=== PATIENT | female | born 1940 | race Caucasian/White ===

== ENCOUNTER 2021-11-20 11:11 | Outpatient (CLI) | payer MEDICARE, BC ==
[2021-11-20 15:55] LABS: ALT ALANINE AMINOTRANSFERASE 19 IU/L (10-60); AST ASPARTATE AMINOTRANSFERASE 24 IU/L (10-42); CHOL/HDL RATIO 3.3 (<4.4); CHOLESTEROL 166 mg/dL; CK- CREATINE KINASE 48 IU/L (22-269); HDL CHOLESTEROL 51 mg/dL; LDL CHOLESTEROL,CALCULATED 92 mg/dL; LDL/HDL RATIO 1.8 (<4.4); TRIGLYCERIDES 116 mg/dL; VLDL CHOLESTEROL 23 mg/dL
== END 2021-11-20 11:12 | disposition home or self-care (01) ==
LOC: LAB.N 11:11
PROVIDERS: ATTEND Family Medicine Geriatric Medicine
DX: E78.5 Hyperlipidemia, unspecified (principal)
CPT/HCPCS: 36415; 80061; 82550; 83721; 84450; 84460

== ENCOUNTER 2022-02-19 08:00 | Outpatient (CLI) | payer MEDICARE, BC ==
[2022-02-19 16:03] LABS: BASOPHILS # (AUTO) 0.1 10^3/uL (0.0-0.1); BASOPHILS % (AUTO) 0.6 %; EOSINOPHILS # (AUTO) 0.3 10^3/uL (0.0-0.7); EOSINOPHILS % (AUTO) 3.7 %; HCT - HEMATOCRIT 23.7 % (37.0-47.0); LYMPHOCYTES # (AUTO) 0.8 10^3/uL (1.5-3.5); LYMPHOCYTES % (AUTO) 9.7 %; MEAN CORPUSCULAR HEMOGLOBIN 20.1 pg (27.0-31.0); MEAN CORPUSCULAR VOLUME 74.3 fL (81.0-99.0); MEAN PLATELET VOLUME 9.9 fL (7.9-10.8); MONOCYTES # (AUTO) 0.8 10^3/uL (0.0-1.0); MONOCYTES % (AUTO) 9.2 %; NEUTROPHILS # (AUTO) 6.6 10^3/uL (1.5-6.6); NEUTROPHILS % (AUTO) 75.8 %; NRBC ABSOLUTE COUNT (AUTO) 0.04 x10^3/uL; NUCLEATED RED BLOOD CELLS AUTO 0.5 /100WBC; PLT - PLATELET COUNT 255 10^3/uL (130-450); RED BLOOD COUNT 3.19 10^6/uL (4.20-5.40); WHITE BLOOD COUNT 8.7 x10^3/uL (4.8-10.8)
[2022-02-19 16:08] LABS: CALCIUM 8.7 mg/dL (8.5-10.3); CREATININE 1.1 mg/dL (0.4-1.0); HGB - HEMOGLOBIN 6.4 g/dL (12.0-16.0); POTASSIUM 4.3 mmol/L (3.5-5.0)
[2022-02-19 16:29] LABS: PLATELET ESTIMATE, MANUAL NORMAL (130-450,000) (NORMAL); PLATELET MORPHOLOGY NORMAL APPEARANCE (NORMAL); SLIDE REVIEW? Indicated; WBC MORPHOLOGY (MULTIPLE) NORMAL APPEARANCE (NORMAL)
== END 2022-02-19 23:59 ==
LOC: LAB.R 08:00
PROVIDERS: ATTEND Internal Medicine
DX: G47.00 Insomnia, unspecified (principal); R06.09 Other forms of dyspnea; J32.9 Chronic sinusitis, unspecified; R23.1 Pallor
CPT/HCPCS: 80048; 83880; 85025

== ENCOUNTER 2022-02-19 16:37 | Emergency (ER) | payer MEDICARE, BC ==
[2022-02-19 17:11] LABS: BASOPHILS # (AUTO) 0.1 10^3/uL (0.0-0.1); BASOPHILS % (AUTO) 0.6 %; EOSINOPHILS # (AUTO) 0.2 10^3/uL (0.0-0.7); EOSINOPHILS % (AUTO) 2.8 %; HCT - HEMATOCRIT 23.2 % (37.0-47.0); LYMPHOCYTES % (AUTO) 12.9 %; MEAN CORPUSCULAR HEMOGLOBIN 20.5 pg (27.0-31.0); MEAN CORPUSCULAR VOLUME 73.2 fL (81.0-99.0); MEAN PLATELET VOLUME 9.5 fL (7.9-10.8); MONOCYTES # (AUTO) 0.7 10^3/uL (0.0-1.0); MONOCYTES % (AUTO) 9.2 %; NEUTROPHILS # (AUTO) 5.9 10^3/uL (1.5-6.6); NEUTROPHILS % (AUTO) 73.4 %; NRBC ABSOLUTE COUNT (AUTO) 0.02 x10^3/uL; NUCLEATED RED BLOOD CELLS AUTO 0.2 /100WBC; PLT - PLATELET COUNT 236 10^3/uL (130-450); RED BLOOD COUNT 3.17 10^6/uL (4.20-5.40); RED CELL DISTRIBUTION WIDTH 17.7 % (12.0-15.0); WHITE BLOOD COUNT 8.1 x10^3/uL (4.8-10.8)
[2022-02-19 17:14] LABS: HGB - HEMOGLOBIN 6.5 g/dL (12.0-16.0)
--- NOTE | 2022-02-19 17:24 | ED Physician Documentation ---
History of Present Illness - Stated complaint Stated Complaint: LOW BLOOD COUNT-SENT BY DOC - Chief complaint Chief Complaint: General - History obtained from History obtained from: Patient - Additonal information Additional information: 81-year-old woman presents with 2 weeks of shortness of breath and pallor. Went to her doctors today and she was noted to be anemic with a hemoglobin of 6-1/2. She does note 3 months of dark stools and some constipation. She takes Aleve twice weekly for headaches. No history of GI bleeding or anemia. Review of Systems Ten Systems: 10 systems reviewed and negative Constitutional: reports: Fatigue Nose: reports: Congestion GI: reports: Constipation. denies: Abdominal Pain, Nausea, Vomiting PD PAST MEDICAL HISTORY - Present Medications Home Medications: Ambulatory Orders Medication Instructions Recorded Confirmed Ferrous Sulfate 325 mg PO BID #60 tab 02/19/22 - Allergies Allergies/Adverse Reactions: Allergies Allergy/AdvReac Type Severity Reaction Status Date / Time No Known Drug Allergies Allergy Verified 02/19/22 17:12 PD ED PE NORMAL - Vitals Vital signs reviewed: Yes - General General: Alert and oriented X 3, No acute distress - HEENT HEENT: PERRL, EOMI - Neck Neck: Supple, no meningeal sign, No bony TTP - Cardiac Cardiac: RRR, Other (2 out of 6 decrescendo systolic murmur heard best at the left upper sternal border) - Respiratory Respiratory: No respiratory distress, Clear bilaterally - Abdomen Abdomen: Normal bowel sounds, Soft, Non tender - Rectal Rectal: Other (Rectal exam done with [facility] RN present and chaperoning. Brown stool, sent for guaiac. No masses.) - Back Back: No CVA TTP, No spinal TTP - Derm Derm: Normal color, Warm and dry - Extremities Extremities: No edema, No calf tenderness / cord - Neuro Neuro: Alert and oriented X 3, Normal speech Results - Vitals Vitals: Vital Signs - 24 hr 02/19/22 02/19/22 02/19/22 17:07 17:36 19:43 Temperature Heart Rate 77 98 81 Respiratory 16 16 Rate Blood Pressure 113/85 H 140/76 H 151/79 H O2 Saturation 98 98 97 02/19/22 02/19/22 02/20/22 21:00 23:54 00:20 Temperature 36.6 C Heart Rate 58 L 76 Respiratory 20 20 Rate Blood Pressure 122/109 H 110/71 O2 Saturation 100 97 02/20/22 02/20/22 02/20/22 00:25 00:36 01:07 Temperature 36.5 C Heart Rate 77 64 66 Respiratory 20 18 20 Rate Blood Pressure 141/99 H 143/72 H 124/72 O2 Saturation 02/20/22 02/20/22 01:21 01:46 Temperature 37.2 C Heart Rate 73 65 Respiratory 18 Rate Blood Pressure 132/65 H 117/96 H O2 Saturation Oxygen O2 Source Room air - Labs Labs: Microbiology 02/19/22 19:05 Occult Blood - Final Stool Laboratory Tests 02/19/22 02/19/22 02/19/22 12:30 17:03 17:03 WBC 8.1 RBC 3.17 L Hgb 6.5 L* Hct 23.2 L MCV 73.2 L MCH 20.5 L MCHC 28.0 L RDW 17.7 H Plt Count 236 MPV 9.5 Neut # (Auto) 5.9 Lymph # (Auto) 1.0 L [place] # (Auto) 0.7 Eos # (Auto) 0.2 Baso # (Auto) 0.1 Absolute Nucleated RBC 0.02 Nucleated RBC % 0.2 PT INR Iron TIBC % Saturation Transferrin Total Bilirubin Direct Bilirubin Indirect Bilirubin TSH Blood Type O POSITIVE Blood Type Recheck O POSITIVE Antibody Screen POSITIVE Antibody Identification Anti-Fya RAJAT, IgG Specific Not Reportable RAJAT, Polyspecific NEGATIVE RAJAT, C3d Specific Not Reportable Crossmatch See Detail Crossmatch IS Only See Detail 02/19/22 02/19/22 02/19/22 17:03 17:03 17:38 WBC RBC Hgb Hct MCV MCH MCHC RDW Plt Count MPV Neut # (Auto) Lymph # (Auto) [place] # (Auto) Eos # (Auto) Baso # (Auto) Absolute Nucleated RBC Nucleated RBC % PT 12.5 INR 1.1 Iron 14 L TIBC 503 H % Saturation 3 L Transferrin 359 Total Bilirubin Direct Bilirubin Indirect Bilirubin TSH 2.95 Blood Type Blood Type Recheck Antibody Screen Antibody Identification RAJAT, IgG Specific RAJAT, Polyspecific RAJAT, C3d Specific Crossmatch Crossmatch IS Only 02/19/22 22:08 WBC RBC Hgb Hct MCV MCH MCHC RDW Plt Count MPV Neut # (Auto) Lymph # (Auto) [place] # (Auto) Eos # (Auto) Baso # (Auto) Absolute Nucleated RBC Nucleated RBC % PT INR Iron TIBC % Saturation Transferrin Total Bilirubin 0.5 Direct Bilirubin 0.1 Indirect Bilirubin 0.4 TSH Blood Type Blood Type Recheck Antibody Screen Antibody Identification RAJAT, IgG Specific RAJAT, Polyspecific RAJAT, C3d Specific Crossmatch Crossmatch IS Only PD MEDICAL DECISION MAKING - ED course ED course: 81yo woman with symptomatic anemia of unclear timeframe. No e/o GI bleed/guaiac neg. Ordered 1 unit PRBC, some significant delay as she had antibodies making crossmatch difficult. Given this, bilirubin also checked to eval for hemolysis and neg. Departure - Departure Disposition: Home, Self Care Clinical Impression: Anemia Qualifiers: Anemia type: iron deficiency Iron deficiency anemia type: unspecified iron deficiency Qualified Code(s): D50.9 - Iron deficiency anemia, unspecified Condition: Good Record reviewed to determine appropriate education?: Yes Instructions: ED Anemia Iron Deficiency Prescriptions: Ferrous Sulfate 325 mg PO BID #60 tab Comments: You are seen today for anemia. The reason is not clear why. You certainly do have iron deficiency with total iron of 14 (normal is greater than 28), a total iron binding capacity of 503 and a percent saturation of 3%. You were guaiac negative so we do not think you are internally bleeding. Return for new or worsening symptoms. You did receive 1 unit of blood here tonight, note for your records that there was a significant delay in getting your blood because you have antibodies. Follow-up with Dr. Donato next week. She will likely want to do further work-up to find why you have anemia. Discharge Date/Time: 02/20/22 02:01
[2022-02-19 17:40] LABS: % IRON SATURATION 3 % (20-50); IRON 14 ug/dL (28-170); TOTAL IRON BINDING CAPACITY 503 ug/dL (250-450); TRANSFERRIN 359 mg/dL (192-382)
[2022-02-19 17:49] LABS: INR 1.1 (0.8-1.2); PT - PROTHROMBIN TIME 12.5 secs (9.9-12.6)
[2022-02-19 22:27] LABS: BILIRUBIN,DIRECT 0.1 mg/dL (0.1-0.5); BILIRUBIN,INDIRECT 0.4 mg/dL; BILIRUBIN,TOTAL 0.5 mg/dL (0.2-1.0)
[2022-02-20 01:47] VITALS: BP 117/96
== END 2022-02-20 02:01 | disposition home or self-care (01) ==
LOC: ED 16:37
DX: D50.9 Iron deficiency anemia, unspecified (principal)
CPT/HCPCS: 36415; 36430; 82247; 82248; 82272; 83540; 84443; 84466; 85025; 85610; 86850; 86870; 86880; 86900; 86901; 86920; 86922; 99283; 99285; P9016

== ENCOUNTER 2022-02-26 11:32 | Outpatient (CLI) | payer MEDICARE, BC ==
[2022-02-26 11:45] LABS: BASOPHILS # (AUTO) 0.1 10^3/uL (0.0-0.1); BASOPHILS % (AUTO) 0.7 %; EOSINOPHILS # (AUTO) 0.4 10^3/uL (0.0-0.7); EOSINOPHILS % (AUTO) 3.4 %; HCT - HEMATOCRIT 29.5 % (37.0-47.0); HGB - HEMOGLOBIN 8.2 g/dL (12.0-16.0); LYMPHOCYTES # (AUTO) 1.6 10^3/uL (1.5-3.5); LYMPHOCYTES % (AUTO) 14.9 %; MEAN CORPUSCULAR HEMOGLOBIN 21.7 pg (27.0-31.0); MEAN CORPUSCULAR HGB CONC 27.8 g/dL (32.0-36.0); MEAN PLATELET VOLUME 8.9 fL (7.9-10.8); MONOCYTES # (AUTO) 1.1 10^3/uL (0.0-1.0); MONOCYTES % (AUTO) 10.4 %; NEUTROPHILS # (AUTO) 7.5 10^3/uL (1.5-6.6); NEUTROPHILS % (AUTO) 69.1 %; NRBC ABSOLUTE COUNT (AUTO) 0.03 x10^3/uL; NUCLEATED RED BLOOD CELLS AUTO 0.3 /100WBC; PLT - PLATELET COUNT 224 10^3/uL (130-450); RED BLOOD COUNT 3.78 10^6/uL (4.20-5.40); RED CELL DISTRIBUTION WIDTH 22.3 % (12.0-15.0); WHITE BLOOD COUNT 10.8 x10^3/uL (4.8-10.8)
[2022-02-26 12:16] LABS: SLIDE REVIEW? Indicated
[2022-02-26 13:46] LABS: PLATELET ESTIMATE, MANUAL NORMAL (130-450,000) (NORMAL); PLATELET MORPHOLOGY NORMAL APPEARANCE (NORMAL); WBC MORPHOLOGY (MULTIPLE) NORMAL APPEARANCE (NORMAL)
== END 2022-02-26 11:33 | disposition home or self-care (01) ==
LOC: LAB 11:32
PROVIDERS: ATTEND Internal Medicine
DX: G47.00 Insomnia, unspecified (principal); D50.9 Iron deficiency anemia, unspecified
CPT/HCPCS: 36415; 85025

== ENCOUNTER 2022-06-30 06:33 | Day surgery (SDC) | payer MEDICARE, BC ==
[~2022-06-30 06:33] MED LIST: LACTATED RINGERS 1,000 ML IV ONE
--- NOTE | 2022-06-30 07:19 | ANESTHESIA ---
Pre-Anesthesia VS, & Labs - Diagnosis iron deficiency anemia, screening - Procedure Colonoscopy with possible polyp removal Height: 5 ft 6 in Weight (kg): 85.7 kg Body Mass Index: 30.4 BMI Classification: Obese - NPO >8 hours - Is Patient ?: No Home Medications and Allergies Home Medications: Ambulatory Orders Atorvastatin Calcium 40 mg PO DAILY 06/23/22 Citalopram Hydrobromide [Citalopram HBr] 40 mg PO DAILY 06/23/22 Ferrous Sulfate 325 mg PO DAILY 06/23/22 Metoprolol Succinate [Toprol Xl] 25 mg PO DAILY 06/23/22 Mirtazapine 15 mg PO QPM 06/23/22 Atorvastatin Calcium 40 mg PO DAILY 06/23/22 Citalopram Hydrobromide [Citalopram HBr] 40 mg PO DAILY 06/23/22 Ferrous Sulfate 325 mg PO DAILY 06/23/22 Metoprolol Succinate [Toprol Xl] 25 mg PO DAILY 06/23/22 Mirtazapine 15 mg PO QPM 06/23/22 Allergies/Adverse Reactions: Allergies Allergy/AdvReac Type Severity Reaction Status Date / Time No Known Drug Allergies Allergy Verified 02/19/22 17:12 Anes History & Medical History - Anesthetic History Anesthesia Complications: reports: No previous complications Family history of Anesthesia Complications: Denies Family history of Malignant Hyperthermia: Denies - Medical History Cardiovascular: reports: Hypertension, High cholesterol, [place] Pulmonary: reports: None Gastrointestinal: reports: GERD, Other Urinary: reports: Incontinence Neuro: reports: Other (SDH in 2019, residual weakness and memory loss) Musculoskeletal: reports: None Endocrine/Autoimmune: reports: None Blood Disorders: reports: None Skin: reports: None Smoking Status: Never smoker Psychosocial: reports: Depression, Other (sleep issues) History of Cancer?: No - Surgical History General: reports: Cholecystectomy Cardiothoracic: reports: Coronary stent, Cardiac catheterization Gynecologic: reports: Hysterectomy Neurologic: reports: Other Exam General: Alert, Oriented x3, Cooperative, No acute distress Dental: WNL Mouth Openin Fingerbreadth Neck Mobility: Normal Mallampati classification: II Thyromental Distance: less than 4 cm Respiratory: Lungs clear, Normal breath sounds, No respiratory distress, No accessory muscle use Cardiovascular: Regular rate, Normal S1, Normal S2, No murmurs Mental/Cognitive Status: Alert/Oriented X3, Normal for patient Cognitive Status: Within normal limits Plan Anesthesia Type: General, Total IV Consent for Procedure(s) Verified and Reviewed: Yes Code Status: Attempt Resuscitation ASA classification: 2-Mild systemic disease Is this case an emergency?: No
[2022-06-30] MEDS ORDERED: LIDOCAINE-MPF 2% 5 ML VIAL ONE (07:42)
[2022-06-30] MEDS ORDERED: PROPOFOL 500 MG/50 ML 500 MG/50 ML VIAL ONE (07:42)
[2022-06-30] MEDS ORDERED: ePHEDrine 50 MG/ML VIAL IVP ONE (08:25)
[2022-06-30 09:16] VITALS: BP 116/85
--- NOTE | 2022-06-30 14:58 | ANESTHESIA POST OP EVALUATION ---
Anesthesia Post Eval - Post Anesthesia Eval Vitals: Last Vital Signs Temp 36.3 C L 06/30/22 09:00 Pulse 67 06/30/22 09:00 Resp 16 06/30/22 09:00 BP 116/85 H 06/30/22 09:00 Pulse Ox 93 06/30/22 09:00 CV Function Including HR & BP: Stable Pain Control: Satisfactory Nausea & Vomiting: Negative Mental Status: Baseline Respiratory Status: Airway Patent Hydration Status: Satisfactory Anesthesia Complications: None
== END 2022-06-30 06:34 | disposition home or self-care (01) ==
LOC: SDS 06:33
PROVIDERS: ATTEND Surgery
PROC: 0DBM8ZZ Excision of Descending Colon, Via Natural or Artificial Opening Endoscopic (ICD-10-PCS; principal; 2022-06-30 07:30)
PROC: 0DJ08ZZ Inspection of Upper Intestinal Tract, Via Natural or Artificial Opening Endoscopic (ICD-10-PCS; 2022-06-30 07:30)
DX: D50.9 Iron deficiency anemia, unspecified (principal); D12.4 Benign neoplasm of descending colon; K57.30 Diverticulosis of large intestine without perforation or abscess without bleeding; K64.8 Other hemorrhoids; K59.00 Constipation, unspecified; K22.89 Other specified disease of esophagus; K44.9 Diaphragmatic hernia without obstruction or gangrene; K31.89 Other diseases of stomach and duodenum; I25.2 Old myocardial infarction; E66.9 Obesity, unspecified; Z68.30 Body mass index [BMI] 30.0-30.9, adult; K21.9 Gastro-esophageal reflux disease without esophagitis; F32.A Depression, unspecified; I10 Essential (primary) hypertension
CPT/HCPCS: 43235; 45385; J7120

== ENCOUNTER 2024-01-05 13:22 | Outpatient (CLI) | payer MEDICARE, BC ==
--- NOTE | 2024-01-05 21:44 | XRAY Report ---
PROCEDURE: Chest 2V INDICATIONS: SHORTNESS OF BREATH TECHNIQUE: 2 views of the chest were acquired. COMPARISON: None. FINDINGS: Surgical changes and devices: None. Lungs and pleura: Bibasilar opacities with blunting of the costophrenic angles. Increased pulmonary vascularity is present. Mediastinum: Mediastinal contours appear normal. Heart size is enlarged. Bones and chest wall: No suspicious bony lesions. Overlying soft tissues appear unremarkable. IMPRESSION: Mild to moderate right and mild left pleural effusions with increased pulmonary vascularity consisten t with edema. Underlying areas of pneumonia and/or atelectasis cannot be excluded. Reviewed by: Mikaela Garcia MD on 01/05/2024 9:43 PM PST Approved by: Mikaela Garcia MD on 01/05/2024 9:43 PM PST Station ID: [id number]
== END 2024-01-05 13:23 | disposition home or self-care (01) ==
LOC: DI 13:22
PROVIDERS: ATTEND Registered Nurse
DX: J90 Pleural effusion, not elsewhere classified (principal)

== ENCOUNTER 2024-01-12 08:00 | Outpatient (CLI) | payer MEDICARE, BC ==
[2024-01-12 17:31] LABS: BILIRUBIN,URINE SMALL (NEGATIVE); GLUCOSE, URINE (UA) NEGATIVE (NEGATIVE); KETONES,URINE (UA) TRACE mg/dL (NEGATIVE); LEUKOCYTE ESTERASE, URINE LARGE (NEGATIVE); NITRITE,URINE NEGATIVE (NEGATIVE); OCCULT BLOOD,URINE LARGE (NEGATIVE); PH,URINE 5.5 PH (5.0-7.5); PROTEIN,URINE 100 mg/dL (NEGATIVE); UROBILINOGEN,URINE 0.2 (NORMAL) E.U./dL (NORMAL)
[2024-01-12 17:32] LABS: CLARITY,URINE TURBID (CLEAR)
[2024-01-12 17:50] LABS: BACTERIA,URINE Few /HPF (None Seen); RBC,URINE TNTC /HPF (0-5); SQUAMOUS EPITHELIAL CELL,UR MANY Squamous (<= Few); WBC CLUMPS,URINE PRESENT; WBC,URINE >25 /HPF (0-5)
[2024-01-12 17:51] LABS: CASTS, URINE 0-2 Hyaline Casts /LPF; YEAST,URINE PRESENT
== END 2024-01-12 23:59 | disposition home or self-care (01) ==
LOC: LAB.R 08:00
PROVIDERS: ATTEND Registered Nurse
DX: R82.90 Unspecified abnormal findings in urine (principal)
CPT/HCPCS: 81001; 81003; 87086